=== PATIENT | male | born 1960 | race Caucasian/White ===

== ENCOUNTER → 2017-03-16 | Outpatient (CLI) | payer OTHER ==
--- NOTE | 2017-03-16 13:25 | US ---
EXAMINATION TYPE: US kidneys/renal and bladder DATE OF EXAM: 03/16/2017 7:53 AM COMPARISON: NONE CLINICAL HISTORY: Calculus o Kidney N20.0,Microscopic Hematuria R31.29. EXAM MEASUREMENTS: Right Kidney: 11.2 x 5.0 x 5.6 cm Left Kidney: 11.1 x 5.4 x 7.0cm Right Kidney: 1.1cm inferior pole stone seen Left Kidney: multiple echogenic areas may represent smaller stones under 1cm Bladder: appearance of thickened anterior wall, suspect lack of distention is the etiology. Bilateral Jets seen: yes There is no evidence for hydronephrosis at this point in time. Cortical medullary differentiation is maintained. Bilateral ureteral jets are seen. There is no ascites evident IMPRESSION: Bilateral nephrolithiasis is suspected.
== END | disposition home or self-care (01) ==
LOC: RADUSWWP 07:37
PROVIDERS: ATTEND Family Medicine
DX: R31.29 Other microscopic hematuria (principal)
CPT/HCPCS: 76770

== ENCOUNTER → 2017-04-12 | Outpatient (CLI) | payer OTHER ==
--- NOTE | 2017-04-12 09:09 | US ---
EXAMINATION TYPE: US abdomen complete DATE OF EXAM: 04/12/2017 COMPARISON: CT October 06, 2013 & US kidneys March 16, 2017. CLINICAL HISTORY: R74.3 ELEVATED LIVER ENZYMES,E83.52 ELEVATED CALCIUM,R1084. EXAM MEASUREMENTS: Liver Length: 17.4 cm Gallbladder Wall: 0.3 cm CBD: 0.4 cm Spleen: 12.0 cm Right Kidney: 11.2 x 4.4 x 5.4 cm Left Kidney: 11.2 x 6.8 x 5.9 cm Pancreas: not well visualized Liver: measures upper limits of normal, somewhat coarse echotexture. Gallbladder: No stones seen Evidence for sonographic Levy's sign: No CBD: wnl Spleen: wnl Right Kidney: echogenic focus lower pole, possible stone measuring 0.8 x 0.8 cm shadowing Left Kidney: No hydronephrosis or masses seen Upper IVC: wnl Abd Aorta: known AAA measuring 3.8 x 4.0 cm The visualized liver is heterogeneously hyperechoic. Evaluation for focal masses is suboptimal due to the heterogeneity. The intrahepatic portion of the IVC and proximal abdominal aorta are within saji l limits. Distal abdominal aorta redemonstrated 4.0 cm aneurysmal dilatation. This is more prominent than 2013 CT though likely slightly falsely elevated or measured by technologist, suspect closer to t he 3.7 cm. There is no evidence of cholelithiasis. Common bile duct is unremarkable. The visualized portions of the pancreas are homogenous. The spleen is unremarkable. Kidneys are symmetric and сергей e of hydronephrosis. No renal lesions are seen. IMPRESSION: 1. Heterogeneity of liver is likely on basis of diffuse fatty infiltration, underlying hepatocellular disease felt less likely but not excluded. 2. Suspect stable nonobstructing 8 millimeter right-sided renal calculus from recent ultrasound. 3. Infrarenal abdominal aortic aneurysm appears more prominent than 2012 CT likely measuring up to 3. 7 cm in diameter.
== END | disposition home or self-care (01) ==
LOC: RADUSWWP 06:50
PROVIDERS: ATTEND Family Medicine
DX: K76.0 Fatty (change of) liver, not elsewhere classified (principal); I71.4 Abdominal aortic aneurysm, without rupture
CPT/HCPCS: 76700

== ENCOUNTER 2017-10-28 08:50 | Day surgery (SDC) | payer OTHER ==
[2017-10-27 23:28] VITALS: BMI 30.1
[~2017-10-28 08:50] MED LIST: LACTATED RINGERS 1,000 ML IV SCH
[2017-10-28] MEDS ORDERED: LIDOCAINE 1% 20 ML VIAL (10MG/ML) FOR IV START INTRADERMA ONE (09:05)
[2017-10-28] MEDS ORDERED: PROPOFOL 10 MG/ML 20 ML VIAL IV ONE (09:33)
[2017-10-28] MEDS ORDERED: LIDOCAINE 1% INJ 10MG/ML (20 ML MDV) ONE (09:33)
[2017-10-28] MEDS ORDERED: IV FLUID CONTINUATION 650 ML IV ONE (09:58)
--- NOTE | 2017-10-28 10:06 | P.PCN ---
Date of Procedure: 10/28/17 Preoperative Diagnosis: Rectal pain Postoperative Diagnosis: Rectal polyp Procedure(s) Performed: Colonoscopy with hot forceps biopsy of rectal polyp Anesthesia: MAC Surgeon: Jacob Harmon Condition: stable Disposition: PACU Indications for Procedure: This 57-year-old male who presented to my office with the chief complaint of rectal pain he had never had a colonoscopy in the last 20 years he states he occasionally had some bleeding no other complaints. Operative Findings: Hyperplastic rectal polyps along with a rectal polyp at 1 cm Description of Procedure: Patient brought into the Endo suite placed in the left lateral decubitus position underwent sedation per department of anesthesia. Colonoscope was passed from the rectum to the cecum with ease and slowly withdrawn being sure to visualize the mars of the colon on the way out. There was multiple hyperplastic rectal polyps noted one of these was biopsied with hot forceps biopsies. When the scope was retroflexed to examine the distal rectum, internal hemorrhoids were noted there is also a polyp. Which was biopsied. External hemorrhoids were also noted. Patient had no other abnormalities tolerated the procedure well no apparent complications. Plan - Discharge Summary New Discharge Prescriptions: No Action Lisinopril [Prinivil] 5 mg PO QAM HYDROcodone/APAP 10-325MG [[place] 10-325] 1 tab PO BID Famotidine [Pepcid] 20 mg PO BID Cyanocobalamin (Vitamin B-12) [Vitamin B-12] 2,000 mcg PO DAILY Discharge Medication List Lisinopril [Prinivil] 5 mg PO QAM 10/02/16 [History] Cyanocobalamin (Vitamin B-12) [Vitamin B-12] 2,000 mcg PO DAILY 10/27/17 [ History] Famotidine [Pepcid] 20 mg PO BID 10/27/17 [History] HYDROcodone/APAP 10-325MG [[place] 10-325] 1 tab PO BID 10/27/17 [History]
[2017-10-28 16:31] VITALS: BP 182/80; PULSE 77; RESP 18; TEMP 97.8
== END 2017-10-28 10:30 | disposition home or self-care (01) ==
LOC: ORWHC2ENDO 08:50
PROVIDERS: ATTEND Student in an Organized Health Care Education/Training Program
DX: K62.1 Rectal polyp (principal); K64.4 Residual hemorrhoidal skin tags; K64.8 Other hemorrhoids; I10 Essential (primary) hypertension; G35 Multiple sclerosis; Z79.891 Long term (current) use of opiate analgesic; Z79.899 Other long term (current) drug therapy
CPT/HCPCS: 45384; 88305; J2001; J2704

== ENCOUNTER 2018-01-11 05:34 | Emergency (ER) | payer OTHER ==
[2018-01-11 05:40] VITALS: RESP 18
[2018-01-11] MEDS ORDERED: SODIUM CHLORIDE 0.9% 1,000 ML IV ONE (05:50)
[2018-01-11] MEDS ORDERED: MORPHINE SULFATE/PF 10MG/10ML VL IVP STA (05:50)
[2018-01-11] MEDS ORDERED: KETOROLAC 30 MG/ML 1 ML VIAL IVP STA (05:50)
--- NOTE | 2018-01-11 05:58 | ED ---
General Adult HPI - General Source: patient, RN notes reviewed Mode of arrival: ambulatory Limitations: no limitations <Jerald Florian - Last Filed: 01/11/18 06:57> <Raman Merino - Last Filed: 01/11/18 09:05> - General Chief complaint: Abdominal Pain Stated complaint: kidney pain Time Seen by Provider: 01/11/18 05:43 - History of Present Illness Initial comments: 57-year-old male presents with right flank pain. Patient's pain began approximately 2 hours prior to arrival. The patient from sleep. Patient does have history of kidney stones, states he most recently passed stone about 2 weeks ago. Pain is isolated to the right flank, no abdominal pain or groin pain. Pain is sharp in nature and has been constant. Patient took a [place] at home with minimal relief. Denies any fever or chills. Denies dysuria or hematuria. (Jerald Florian) - Related Data Home Medications Medication Instructions Recorded Confirmed Lisinopril [Prinivil] 5 mg PO QAM 10/02/16 01/11/18 Famotidine [Pepcid] 20 mg PO BID 10/27/17 01/11/18 HYDROcodone/APAP 10-325MG [[place] 1 tab PO BID 10/27/17 01/11/18 10-325] Cholecalciferol [Vitamin D3] 1,000 unit PO DAILY 01/11/18 01/11/18 Previous Rx's Medication Instructions Recorded Hydrocodone/Acetaminophen [[place] 1 each PO Q4HR PRN #20 tab 01/11/18 5-325] Ketorolac [Toradol] 10 mg PO Q6HR #15 tab 01/11/18 Tamsulosin [Flomax] 0.4 mg PO DAILY #10 cap 01/11/18 Allergies Allergy/AdvReac Type Severity Reaction Status Date / Time No Known Allergies Allergy Verified 01/11/18 08:01 Review of Systems ROS Other: All systems not noted in ROS Statement are negative. <Jerald Florian - Last Filed: 01/11/18 06:57> ROS Other: All systems not noted in ROS Statement are negative. <Raman Merino - Last Filed: 01/11/18 09:05> ROS Statement: Those systems with pertinent positive or pertinent negative responses have been documented in the HPI. Past Medical History Past Medical History: Hypertension Additional Past Medical History / Comment(s): Back pain, kidney stone, ulcer History of Any Multi-Drug Resistant Organisms: None Reported Past Surgical History: Appendectomy, Hernia Repair Additional Past Surgical History / Comment(s): transurethral removal of kidney stone,[facility] eye surgery Past Anesthesia/Blood Transfusion Reactions: No Reported Reaction Additional Past Anesthesia/Blood Transfusion Reaction / Comment(s): anesthesia at [facility] caused agitation Past Psychological History: No Psychological Hx Reported Smoking Status: Former smoker - Past Family History Mother Family Medical History: Cancer Father Family Medical History: Cancer <Jerald Florian - Last Filed: 01/11/18 06:57> General Exam Limitations: no limitations General appearance: alert, in no apparent distress Head exam: Present: atraumatic, normocephalic Eye exam: Present: normal appearance. Absent: PERRL, EOMI Neck exam: Present: normal inspection. Absent: tenderness, meningismus Respiratory exam: Present: normal lung sounds bilaterally. Absent: respiratory distress, wheezes Cardiovascular Exam: Present: regular rate, normal rhythm GI/Abdominal exam: Present: soft. Absent: distended, tenderness, guarding Extremities exam: Present: normal inspection, normal capillary refill. Absent: pedal edema Back exam: Present: normal inspection, full ROM, CVA tenderness (R) Neurological exam: Present: alert, oriented X3, CN II-XII intact. Absent: motor sensory deficit Psychiatric exam: Present: normal affect, normal mood Skin exam: Present: warm, dry, intact. Absent: cyanosis, diaphoretic <Jerald Florian - Last Filed: 01/11/18 06:57> Course <Jerald Florian - Last Filed: 01/11/18 06:57> <Raman Merino - Last Filed: 01/11/18 09:05> Vital Signs 01/11/18 01/11/18 01/11/18 05:37 06:10 07:11 Temperature 97.3 F L 97.3 F L Pulse Rate 67 64 67 Respiratory 18 18 18 Rate Blood Pressure 186/90 150/72 162/79 O2 Sat by Pulse 100 97 97 Oximetry - Reevaluation(s) Reevaluation #1: 01/11/18 06:57 Case signed out to Dr. Merino at shift change awaiting imaging and laboratory studies. (Jerald Florian) Medical Decision Making - Lab Data Result diagrams: 01/11/18 06:04 01/11/18 06:04 <Jerald Florian - Last Filed: 01/11/18 06:57> - Lab Data Result diagrams: 01/11/18 06:04 01/11/18 06:04 <Raman Merino - Last Filed: 01/11/18 09:05> - Medical Decision Making Computed tomography scan shows a 9 mm proximal ureteral stone with moderate to severe hydronephrosis. I went back and are examined the patient he was feeling much better and was sleeping when I arrive. Patient states in the past she's passed a 9 mm stone. Patient states he is comfortable to go home at this time he will call urology today. (Raman Merino) - Lab Data Lab Results 01/11/18 01/11/18 01/11/18 Range/Units 06:04 06:04 06:04 WBC 8.9 (3.8-10.6) k/uL RBC 4.55 (4.30-5.90) m/uL Hgb 15.2 (13.0-17.5) gm/dL Hct 43.2 (39.0-53.0) % MCV 94.8 (80.0-100.0) fL MCH 33.3 (25.0-35.0) pg MCHC 35.1 (31.0-37.0) g/dL RDW 12.6 (11.5-15.5) % Plt Count 185 (150-450) k/uL Neutrophils % 75 % Lymphocytes % 16 % Monocytes % 6 % Eosinophils % 1 % Basophils % 0 % Neutrophils # 6.7 (1.3-7.7) k/uL Lymphocytes # 1.4 (1.0-4.8) k/uL Monocytes # 0.5 (0-1.0) k/uL Eosinophils # 0.1 (0-0.7) k/uL Basophils # 0.0 (0-0.2) k/uL PT (9.0-12.0) sec INR (<1.2) APTT (22.0-30.0) sec Sodium 139 (137-145) mmol/L Potassium 4.3 (3.5-5.1) mmol/L Chloride 103 (98-107) mmol/L Carbon Dioxide 27 (22-30) mmol/L Anion Gap 9 mmol/L BUN 14 (9-20) mg/dL Creatinine 0.90 (0.66-1.25) mg/dL Est GFR (CKD-EPI)AfAm >90 (>60 ml/min/1.73 sqM) Est GFR (CKD-EPI)NonAf >90 (>60 ml/min/1.73 sqM) Glucose 129 H (74-99) mg/dL Plasma Lactic Acid Olu 1.1 (0.7-2.0) mmol/L Calcium 9.7 (8.4-10.2) mg/dL Total Bilirubin 0.5 (0.2-1.3) mg/dL AST 75 H (17-59) U/L ALT 94 H (21-72) U/L Alkaline Phosphatase 101 (38-126) U/L Total Protein 7.8 (6.3-8.2) g/dL Albumin 4.3 (3.5-5.0) g/dL Urine Color Urine Appearance (Clear) Urine pH (5.0-8.0) Ur Specific [place] (1.001-1.035) Urine Protein (Negative) Urine Glucose (UA) (Negative) Urine Ketones (Negative) Urine Blood (Negative) Urine Nitrite (Negative) Urine Bilirubin (Negative) Urine Urobilinogen (<2.0) mg/dL Ur Leukocyte Esterase (Negative) Urine RBC (0-5) /hpf Urine WBC (0-5) /hpf Ur Squamous Epith Cells (0-4) /hpf Calcium Oxalate Crystal (None) /hpf Urine Mucus (None) /hpf 01/11/18 01/11/18 Range/Units 06:04 07:53 WBC (3.8-10.6) k/uL RBC (4.30-5.90) m/uL Hgb (13.0-17.5) gm/dL Hct (39.0-53.0) % MCV (80.0-100.0) fL MCH (25.0-35.0) pg MCHC (31.0-37.0) g/dL RDW (11.5-15.5) % Plt Count (150-450) k/uL Neutrophils % % Lymphocytes % % Monocytes % % Eosinophils % % Basophils % % Neutrophils # (1.3-7.7) k/uL Lymphocytes # (1.0-4.8) k/uL Monocytes # (0-1.0) k/uL Eosinophils # (0-0.7) k/uL Basophils # (0-0.2) k/uL PT 10.5 (9.0-12.0) sec INR 1.1 (<1.2) APTT 23.5 (22.0-30.0) sec Sodium (137-145) mmol/L Potassium (3.5-5.1) mmol/L Chloride (98-107) mmol/L Carbon Dioxide (22-30) mmol/L Anion Gap mmol/L BUN (9-20) mg/dL Creatinine (0.66-1.25) mg/dL Est GFR (CKD-EPI)AfAm (>60 ml/min/1.73 sqM) Est GFR (CKD-EPI)NonAf (>60 ml/min/1.73 sqM) Glucose (74-99) mg/dL Plasma Lactic Acid Olu (0.7-2.0) mmol/L Calcium (8.4-10.2) mg/dL Total Bilirubin (0.2-1.3) mg/dL AST (17-59) U/L ALT (21-72) U/L Alkaline Phosphatase (38-126) U/L Total Protein (6.3-8.2) g/dL Albumin (3.5-5.0) g/dL Urine Color Light Red Urine Appearance Cloudy (Clear) Urine pH 6.0 (5.0-8.0) Ur Specific [place] 1.023 (1.001-1.035) Urine Protein 2+ H (Negative) Urine Glucose (UA) Negative (Negative) Urine Ketones Negative (Negative) Urine Blood Large H (Negative) Urine Nitrite Negative (Negative) Urine Bilirubin Negative (Negative) Urine Urobilinogen 2.0 (<2.0) mg/dL Ur Leukocyte Esterase Negative (Negative) Urine RBC >182 H (0-5) /hpf Urine WBC 5 (0-5) /hpf Ur Squamous Epith Cells <1 (0-4) /hpf Calcium Oxalate Crystal Moderate H (None) /hpf Urine Mucus Occasional H (None) /hpf Disposition <IronpetrJerald - Last Filed: 01/11/18 06:57> Time of Disposition: 08:29 <Raman Merino - Last Filed: 01/11/18 09:05> Clinical Impression: Ureterolithiasis Disposition: HOME SELF-CARE Condition: Good Prescriptions: Hydrocodone/Acetaminophen [[place] 5-325] 1 each PO Q4HR PRN #20 tab PRN Reason: Pain Ketorolac [Toradol] 10 mg PO Q6HR #15 tab Tamsulosin [Flomax] 0.4 mg PO DAILY #10 cap Referrals: Maximus Rios DO [Primary Care Provider] - 1-2 days
[2018-01-11 06:15] LABS: Basophils % (A) 0 %; Eosinophils # (A) 0.1 k/uL (0-0.7); Eosinophils % (A) 1 %; HCT 43.2 % (39.0-53.0); HGB 15.2 gm/dL (13.0-17.5); Lymphocytes # (A) 1.4 k/uL (1.0-4.8); Lymphocytes % (A) 16 %; MCH 33.3 pg (25.0-35.0); MCHC 35.1 g/dL (31.0-37.0); MCV 94.8 fL (80.0-100.0); Mean Platelet Volume 7.5; Monocytes # (A) 0.5 k/uL (0-1.0); Monocytes % (A) 6 %; Neutrophils # (A) 6.7 k/uL (1.3-7.7); Neutrophils % (A) 75 %; Platelet Count 185 k/uL (150-450); RBC 4.55 m/uL (4.30-5.90); RDW 12.6 % (11.5-15.5); WBC 8.9 k/uL (3.8-10.6)
[2018-01-11] MEDS ORDERED: ONDANSETRON 4 MG/2 ML VIAL IVP STA (06:15)
[2018-01-11 06:24] LABS: ALT 94 U/L (21-72); AST 75 U/L (17-59); Albumin 4.3 g/dL (3.5-5.0); Alkaline Phosphatase 101 U/L (38-126); Anion Gap 9 mmol/L; Blood Urea Nitrogen 14 mg/dL (9-20); Calcium 9.7 mg/dL (8.4-10.2); Carbon Dioxide 27 mmol/L (22-30); Chloride 103 mmol/L (98-107); Glucose 129 mg/dL (74-99); Potassium 4.3 mmol/L (3.5-5.1); Sodium 139 mmol/L (137-145); Total Bilirubin 0.5 mg/dL (0.2-1.3); Total Protein 7.8 g/dL (6.3-8.2)
[2018-01-11 06:25] LABS: INR 1.1 (<1.2); Partial Thromboplastin Time 23.5 sec (22.0-30.0); Prothrombin Time 10.5 sec (9.0-12.0)
--- NOTE | 2018-01-11 06:48 | CT ---
EXAMINATION TYPE: CT abdomen pelvis wo con DATE OF EXAM: 01/11/2018 HISTORY: Rt flank pain, history of stones. CT DLP: 1044 mGycm. Automated Exposure Control for Dose Reduction was Utilized. TECHNIQUE: CT scan of the abdomen and pelvis is performed without oral or IV contrast. COMPARISON: CT abdomen and pelvis October 06, 2013. FINDINGS: Within the limitations of a non-contrast study, the following observations are made. LUNG BASES: There is stable 3 mm scarlike opacity posterior right lung base on axial image 1 presumed postinflammatory. Heart size is upper limits of normal. LIVER/GB: No significant abnormality is appreciated. PANCREAS: No significant abnormality is seen. SPLEEN: Spleen is enlarged at 14.3 cm long axis axial image 21, not significantly changed from prior. A few small splenules in splenic hilum are redemonstrated. ADRENALS: Low dense nodular thickening to both adrenal glands favors benign hyperplasia, not signific antly changed from prior. KIDNEYS: 3-4 central calcifications in left kidney could reflect nonobstructing renal calculi versus vascular calcifications. There is 9 mm obstructing calculus proximal to mid right ureter seen best coronal image 54 this is ca using moderate to severe right-sided pyelocaliectasis and proximal hydroureter. There is moderate per inephric fat stranding presumed related to obstructing stone, infection should be excluded clinically . There are small dependent calculi in the renal pelvis estimated 5-7 in number measuring up to 4 mm in size. Bladder wall is abnormally thickened up to 7 mm. There is 4 mm dependent hyperdense focus not as dens e as calcium axial image 82, consider acute blood clot. Other etiologies not excluded. BOWEL: Low-lying cecum is seen. No suspicious bowel dilatation is present. GENITAL ORGANS: Some central zone calcifications are seen in normal size prostate gland. LYMPH NODES: No greater than 1cm abdominal or pelvic lymph nodes are appreciated. OSSEOUS STRUCTURES: No significant abnormality is seen. OTHER: There is infrarenal abdominal aortic aneurysm measuring 3.4 x 3.8 cm transversely axial image 44, slightly enlarged from prior CT where it measured 3.6 cm transversely. There is moderate to sever e calcified plaque in the distal abdominal aorta extending into common iliac arterial branch vessels. IMPRESSION: There is obstructing 9 mm calculus proximal to mid right ureter causing moderate to sever e right-sided hydronephrosis.
--- NOTE | 2018-01-11 06:50 | XR ---
EXAMINATION TYPE: XR KUB DATE OF EXAM: 01/11/2018 6:43 AM CLINICAL HISTORY: History of kidney stones with right-sided flank pain TECHNIQUE: Two Upright KUB images of the abdomen are obtained. COMPARISON: CT abdomen and pelvis October 06, 2013. Abdominal x-ray November 22, 2013. FINDINGS: A 9 mm round density is suspicious for ureter calculus L4-L5 disc space level. No definitiv e additional nephrolithiasis. Overall nonobstructive bowel gas pattern lung bases are clear. No pneumoperitoneum is seen. Spleen re khadra prominent. IMPRESSION: Suspect a 9 mm proximal to mid right ureter calculus.
[2018-01-11 08:14] LABS: Appearance,Urine Cloudy (Clear); Bilirubin,Urine Negative (Negative); Blood,Urine Large (Negative); Calcium Oxalate Crystals,Urine Moderate /hpf; Color,Urine Light Red; Glucose,Urine (UA) Negative (Negative); Ketones,Urine Negative (Negative); Leukocyte Esterase,Urine Negative (Negative); Mucus,Urine Occasional /hpf; Nitrite,Urine Negative (Negative); Protein,Urine 2+ (Negative); RBC,Urine >182 /hpf (0-5); Specific Gravity,Urine 1.023 (1.001-1.035); Squamous Epithelial Cell,Urine <1 /hpf (0-4); WBC,Urine 5 /hpf (0-5)
[2018-01-11 09:31] VITALS: BP 131/65; PULSE 72; TEMP 97.9
== END 2018-01-11 09:29 | disposition home or self-care (01) ==
LOC: EC 05:34
DX: N13.2 Hydronephrosis with renal and ureteral calculous obstruction (principal); I10 Essential (primary) hypertension; Z90.49 Acquired absence of other specified parts of digestive tract; Z87.891 Personal history of nicotine dependence; Z79.891 Long term (current) use of opiate analgesic; Z79.899 Other long term (current) drug therapy
CPT/HCPCS: 36415; 80053; 83605; 85025; 85610; 85730; 81001; 74018; 74176; 99284; 96374; 96375 ×2; 96361 ×2; J2405; J1885; J2270

== ENCOUNTER → 2018-01-18 | Outpatient (CLI) | payer OTHER ==
--- NOTE | 2018-01-18 15:52 | US ---
EXAMINATION TYPE: US kidneys/renal and bladder DATE OF EXAM: 01/18/2018 COMPARISON: CT dated 01/11/2018, US dated 04/12/2017 CLINICAL HISTORY: N20 Calculus of Kidney; right flank pain EXAM MEASUREMENTS: Right Kidney: 12.5 x 6.9 x 7.1 cm Left Kidney: 12.0 x 5.1 x 5.8 cm Post Void Residual Volume: empty bladder Right Kidney: mild hydronephrosis; central hyperechoic focus may be small calcification vs. vessel wa ll calcification noted with posterior shadowing on image #[id number]. Left Kidney: No hydronephrosis or masses seen Bladder: wnl Bilateral Jets seen: only left ureteral was seen after 3 minute observation Normal Post Void Residual: Yes IMPRESSION: There is persistent right hydronephrosis. No ureteral jet was identified on the right. Findings may r epresent persistent right ureteral obstruction.
== END | disposition home or self-care (01) ==
LOC: RADUSWWP 13:30
PROVIDERS: ATTEND Family Medicine
DX: N13.30 Unspecified hydronephrosis (principal)
CPT/HCPCS: 76770

== ENCOUNTER 2018-04-23 20:10 | Emergency (ER) | payer OTHER ==
[2018-04-23 20:44] VITALS: RESP 18
[2018-04-23] MEDS ORDERED: SODIUM CHLORIDE 0.9% 1,000 ML IV STA (21:13)
[2018-04-23] MEDS ORDERED: ONDANSETRON 4 MG/2 ML VIAL IVP STA (21:13)
[2018-04-23] MEDS ORDERED: MORPHINE SULFATE 2 MG/ML SYRINGE IV STA (21:13)
[2018-04-23] MEDS ORDERED: KETOROLAC 30 MG/ML 1 ML VIAL IVP STA (21:13)
--- NOTE | 2018-04-23 21:18 | ED ---
Abdominal Pain HPI - General Chief Complaint: Abdominal Pain Stated Complaint: Flank pain Time Seen by Provider: 04/23/18 21:04 Source: patient Mode of arrival: ambulatory Limitations: no limitations - History of Present Illness Initial Comments: Patient is a 58-year-old male presenting for abdominal pain and flank pain. Patient states that he has extensive history of renal calculi with last one occurring a couple months ago. He started having abdominal pain that started at noon and is located in the right flank. Physical pressure sensation in his been constant without radiation or modifying factor. He also admits to subjective fevers and chills and 2 episodes of nausea and vomiting. He denies any diarrhea or chest pain/shortness breath. He also states his been able to urinate without complication. - Related Data Home Medications Medication Instructions Recorded Confirmed Lisinopril [Prinivil] 5 mg PO QAM 10/02/16 01/11/18 Famotidine [Pepcid] 20 mg PO BID 10/27/17 01/11/18 HYDROcodone/APAP 10-325MG [[place] 1 tab PO BID 10/27/17 01/11/18 10-325] Cholecalciferol [Vitamin D3] 1,000 unit PO DAILY 01/11/18 01/11/18 Previous Rx's Medication Instructions Recorded Hydrocodone/Acetaminophen [[place] 1 each PO Q4HR PRN #20 tab 01/11/18 5-325] Ketorolac [Toradol] 10 mg PO Q6HR #15 tab 01/11/18 Tamsulosin [Flomax] 0.4 mg PO DAILY #10 cap 01/11/18 Allergies Allergy/AdvReac Type Severity Reaction Status Date / Time No Known Allergies Allergy Verified 04/23/18 20:44 Review of Systems ROS Statement: Those systems with pertinent positive or pertinent negative responses have been documented in the HPI. Constitutional: Positive for chills, fatigue and fever. HENT: Negative for congestion. Respiratory: Negative for chest tightness, shortness of breath and wheezing. Negative for cough Cardiovascular: Negative for chest pain and palpitations. Gastrointestinal: Positive for abdominal pain. Negative for abdominal distention , diarrhea, positive for nausea and vomiting. Genitourinary: Negative for dysuria. Negative for hematuria Musculoskeletal: Negative for back pain, neck pain and neck stiffness. Skin: Negative for color change. Neurological: Negative for dizziness, speech difficulty, weakness and light- headedness. Psychiatric/Behavioral: Negative for agitation and confusion. The patient is not nervous/anxious. ROS Other: All systems not noted in ROS Statement are negative. Past Medical History Past Medical History: Hypertension Additional Past Medical History / Comment(s): Back pain, kidney stone, ulcer History of Any Multi-Drug Resistant Organisms: None Reported Past Surgical History: Appendectomy, Hernia Repair Additional Past Surgical History / Comment(s): transurethral removal of kidney stone,[place] eye surgery Past Anesthesia/Blood Transfusion Reactions: No Reported Reaction Additional Past Anesthesia/Blood Transfusion Reaction / Comment(s): anesthesia at [place] caused agitation Past Psychological History: No Psychological Hx Reported Smoking Status: Former smoker Past Alcohol Use History: None Reported Past Drug Use History: Marijuana - Past Family History Mother Family Medical History: Cancer Father Family Medical History: Cancer General Exam - General Exam Comments Initial Comments: Constitutional: Pt is oriented to person, place, and time. Pt appears well- developed and well-nourished. No distress. HENT: Head: Normocephalic and atraumatic. Eyes: EOM are normal. Neck: Normal range of motion. Neck supple. Cardiovascular: Normal rate, regular rhythm, S1 normal, S2 normal and normal heart sounds. Exam reveals no gallop and no friction rub. No murmur heard. Pulmonary/Chest: Effort normal and breath sounds normal. No tachypnea and no bradypnea. No respiratory distress. No wheezes or rales noted. Abdominal: Soft. Bowel sounds are normal. Pt exhibits no shifting dullness, no distension, no pulsatile liver, no fluid wave, no abdominal bruit and no ascites. There is no tenderness. There is no rigidity, no rebound, no guarding, no tenderness at McBurney's point and negative Levy's sign. Positive for bilateral flank pain Musculoskeletal: Normal range of motion. Neurological: Pt is alert and oriented to person, place, and time. No cranial nerve deficit. Skin: Skin is warm and dry. No rash noted. Pt is not diaphoretic. No erythema. No pallor. Psychiatric: Pt has a normal mood and affect. Pt behavior is normal. Thought content normal. Limitations: no limitations Course Vital Signs 04/23/18 04/23/18 20:43 23:48 Temperature 98.6 F 98.9 F Pulse Rate 73 90 Respiratory 18 18 Rate Blood Pressure 173/89 138/62 O2 Sat by Pulse 97 98 Oximetry - Reevaluation(s) Reevaluation #1: 04/23/18 23:08 Patient advised that there is severe concern about possible septic stone as there is an 11 mm at the right UVJ. There is also evidence of leukocytosis and evidence of urinary tract infection. Patient was advised that he should be admitted to hospital for continued treatment. However, he currently declines and states that he needs to leave for a short period of time prostate 2-3 hours to take care of his ailing at home. He states that he wouldn't come back to the hospital to get admitted. He also states that he would be agreeable to having antibiotics and blood cultures completed before he leaves. Medical Decision Making - Medical Decision Making As noted in the ED course section, there was significant abnormalities found including leukocytosis as well as transaminitis. There is also hyperkalemia 5.8. Patient was urged to remain in the hospital and this is also discussed with urology and they agreed that the patient should stay and started on antibiotics. Nonetheless, the patient currently declined and stated that he had to leave to take care of his ailing and that he would return approximate 4 hours. He was advised that because treatment of the hyperkalemia involved to D50 and insulin as well as calcium gluconate, he cannot be treated and then knowingly leave the hospital. Therefore, he elected to not receive treatment for hyperkalemia. Additionally, he did receive Rocephin as well as blood cultures were obtained prior to him leaving [place]. He was also explained to him that leaving AGAINST MEDICAL ADVICE could result in or disability which she expressed understanding. He again was advised to return to emergency department as soon as possible since he was indeed leaving AGAINST MEDICAL ADVICE. Patient was agreeable - Lab Data Result diagrams: 04/23/18 20:04 04/23/18 21:16 Lab Results 04/23/18 04/23/18 04/23/18 Range/Units 20:04 21:16 21:58 WBC 15.0 H (3.8-10.6) k/uL RBC 4.84 (4.30-5.90) m/uL Hgb 15.8 (13.0-17.5) gm/dL Hct 46.4 (39.0-53.0) % MCV 95.7 (80.0-100.0) fL MCH 32.7 (25.0-35.0) pg MCHC 34.1 (31.0-37.0) g/dL RDW 12.7 (11.5-15.5) % Plt Count 183 (150-450) k/uL Neutrophils % 88 % Lymphocytes % 7 % Monocytes % 4 % Eosinophils % 0 % Basophils % 0 % Neutrophils # 13.2 H (1.3-7.7) k/uL Lymphocytes # 1.1 (1.0-4.8) k/uL Monocytes # 0.6 (0-1.0) k/uL Eosinophils # 0.1 (0-0.7) k/uL Basophils # 0.0 (0-0.2) k/uL Sodium 136 L (137-145) mmol/L Potassium 5.8 H (3.5-5.1) mmol/L Chloride 99 (98-107) mmol/L Carbon Dioxide 24 (22-30) mmol/L Anion Gap 13 mmol/L BUN 11 (9-20) mg/dL Creatinine 1.00 (0.66-1.25) mg/dL Est GFR (CKD-EPI)AfAm >90 (>60 ml/min/1.73 sqM) Est GFR (CKD-EPI)NonAf 82 (>60 ml/min/1.73 sqM) Glucose 143 H (74-99) mg/dL Calcium 9.8 (8.4-10.2) mg/dL Total Bilirubin 1.4 H (0.2-1.3) mg/dL AST 111 H (17-59) U/L ALT 105 H (21-72) U/L Alkaline Phosphatase 101 (38-126) U/L Total Protein 9.3 H (6.3-8.2) g/dL Albumin 5.0 (3.5-5.0) g/dL Lipase 290 (23-300) U/L Urine Color Yellow Urine Appearance Cloudy (Clear) Urine pH 8.0 (5.0-8.0) Ur Specific [place] 1.020 (1.001-1.035) Urine Protein 1+ H (Negative) Urine Glucose (UA) Negative (Negative) Urine Ketones Negative (Negative) Urine Blood Moderate H (Negative) Urine Nitrite Negative (Negative) Urine Bilirubin Negative (Negative) Urine Urobilinogen <2.0 (<2.0) mg/dL Ur Leukocyte Esterase Negative (Negative) Urine RBC 97 H (0-5) /hpf Urine WBC 8 H (0-5) /hpf Ur Squamous Epith Cells 1 (0-4) /hpf Amorphous Sediment Few H (None) /hpf Urine Mucus Rare H (None) /hpf Disposition Clinical Impression: Transaminitis, Sepsis, Kidney stone, Hyperkalemia Disposition: Left Against Medical Advice Condition: Poor Instructions: Kidney Stones (ED) Is patient prescribed a controlled substance at d/c from ED?: No Referrals: Maximus Rios DO [Primary Care Provider] - 1-2 days Time of Disposition: 23:40
[2018-04-23 21:35] LABS: ALT 105 U/L (21-72); AST 111 U/L (17-59); Alkaline Phosphatase 101 U/L (38-126); Anion Gap 13 mmol/L; Blood Urea Nitrogen 11 mg/dL (9-20); Calcium 9.8 mg/dL (8.4-10.2); Carbon Dioxide 24 mmol/L (22-30); Chloride 99 mmol/L (98-107); Glucose 143 mg/dL (74-99); Lipase 290 U/L (23-300); Sodium 136 mmol/L (137-145); Total Bilirubin 1.4 mg/dL (0.2-1.3); Total Protein 9.3 g/dL (6.3-8.2)
[2018-04-23 21:45] LABS: Potassium 5.8 mmol/L (3.5-5.1)
--- NOTE | 2018-04-23 22:11 | CT ---
EXAMINATION TYPE: CT abdomen pelvis wo con DATE OF EXAM: 04/23/2018 COMPARISON: 01/11/2018 HISTORY: Right side flank pain. CT DLP: 788.7 mGycm Automated exposure control for dose reduction was used. TECHNIQUE: Helical acquisition of images was performed from the lung bases through the pelvis. FINDINGS: Lung bases are clear. There is no pleural effusion. Heart size is normal. There is no pericardial eff usion. Liver spleen pancreas appear normal. Gallbladder is dilated and measures 5 x 10 cm. There is no adrenal mass. There is right-sided hydronephrosis and hydroureter. There is right-sided p erinephric stranding. There is some renal vascular calcification. There is no retroperitoneal adenopa thy. There is 4 cm aneurysm of the lower abdominal aorta. There is right-sided hydroureter and 11 mm calculus at the right ureterovesical junction. Bladder distends smoothly. I see no intestinal wall thickening. There are no dilated loops. There is no ascites. There is no danya dence of pelvic mass. The lumbar spine is intact. IMPRESSION: LARGE OBSTRUCTING CALCULUS AT THE RIGHT URETEROVESICAL JUNCTION THAT HAS MIGRATED FROM THE PROXIMAL R IGHT URETER COMPARED TO OLD EXAM. RIGHT-SIDED HYDRONEPHROSIS AND PERINEPHRIC EDEMA. THIS IS UNCHANGED COMPARED TO OLD EXAM. DILATED URINARY BLADDER CONSISTENT WITH GALLBLADDER DYSFUNCTION OR CHOLECYSTIT IS. GALLBLADDER IS INCREASED SLIGHTLY COMPARED TO OLD EXAM. 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 THIS APPEARS NOT SIGNIFICANTLY DIFFERENT.
[2018-04-23 22:13] LABS: Basophils % (A) 0 %; Eosinophils # (A) 0.1 k/uL (0-0.7); Eosinophils % (A) 0 %; HCT 46.4 % (39.0-53.0); HGB 15.8 gm/dL (13.0-17.5); Lymphocytes # (A) 1.1 k/uL (1.0-4.8); Lymphocytes % (A) 7 %; MCH 32.7 pg (25.0-35.0); MCHC 34.1 g/dL (31.0-37.0); MCV 95.7 fL (80.0-100.0); Monocytes # (A) 0.6 k/uL (0-1.0); Monocytes % (A) 4 %; Neutrophils # (A) 13.2 k/uL (1.3-7.7); Neutrophils % (A) 88 %; Platelet Count 183 k/uL (150-450); RBC 4.84 m/uL (4.30-5.90); RDW 12.7 % (11.5-15.5)
[2018-04-23 22:40] LABS: Amorphous Sediment,Urine Few /hpf; Appearance,Urine Cloudy (Clear); Bilirubin,Urine Negative (Negative); Blood,Urine Moderate (Negative); Color,Urine Yellow; Glucose,Urine (UA) Negative (Negative); Ketones,Urine Negative (Negative); Leukocyte Esterase,Urine Negative (Negative); Mucus,Urine Rare /hpf; Nitrite,Urine Negative (Negative); Protein,Urine 1+ (Negative); RBC,Urine 97 /hpf (0-5); Squamous Epithelial Cell,Urine 1 /hpf (0-4); Urobilinogen,Urine <2.0 mg/dL (<2.0); WBC,Urine 8 /hpf (0-5)
[2018-04-23] MEDS ORDERED: cefTRIAXone IN SWFI 1,000 MG/10 ML SYRINGE IVP STA (23:17)
[2018-04-23 23:55] VITALS: BP 138/62; PULSE 90; TEMP 98.9
== END 2018-04-23 23:54 | disposition left against medical advice (07) ==
LOC: EC 20:10
DX: A41.9 Sepsis, unspecified organism (principal); N13.2 Hydronephrosis with renal and ureteral calculous obstruction; E87.5 Hyperkalemia; R74.0 Nonspecific elevation of levels of transaminase and lactic acid dehydrogenase [LDH]; D72.829 Elevated white blood cell count, unspecified; I10 Essential (primary) hypertension; M54.9 Dorsalgia, unspecified; Z53.29 Procedure and treatment not carried out because of patient's decision for other reasons; Z90.49 Acquired absence of other specified parts of digestive tract; Z79.891 Long term (current) use of opiate analgesic; Z79.899 Other long term (current) drug therapy; Z87.891 Personal history of nicotine dependence
CPT/HCPCS: 99284; 96374; 96375 ×3; 96361; 36415; 80053; 83690; 85025; 81001; 74176; J2405; J0696; J1885; J2270

== ENCOUNTER 2018-04-24 03:30 | Emergency (ER) | payer OTHER ==
--- NOTE | 2018-04-24 06:56 | ED ---
Abdominal Pain HPI - General Chief Complaint: Abdominal Pain Stated Complaint: Kidney stone Time Seen by Provider: 04/24/18 04:50 Source: patient Mode of arrival: ambulatory Limitations: no limitations - History of Present Illness Initial Comments: 58 years old male was seen earlier today with abdominal pain and was diagnosed with a kidney stone his white count was 15 his potassium is 5.8 total bili was elevated AST and ALT are elevated urine was positive he was advised admission but he had to go home to care of his noticed he was offered admission with the sepsis and he stops and hyperkalemia. System is unremarkable otherwise - Related Data Home Medications Medication Instructions Recorded Confirmed Lisinopril [Prinivil] 5 mg PO QAM 10/02/16 01/11/18 Famotidine [Pepcid] 20 mg PO BID 10/27/17 01/11/18 HYDROcodone/APAP 10-325MG [[place] 1 tab PO BID 10/27/17 01/11/18 10-325] Cholecalciferol [Vitamin D3] 1,000 unit PO DAILY 01/11/18 01/11/18 Previous Rx's Medication Instructions Recorded Hydrocodone/Acetaminophen [[place] 1 each PO Q4HR PRN #20 tab 01/11/18 5-325] Ketorolac [Toradol] 10 mg PO Q6HR #15 tab 01/11/18 Tamsulosin [Flomax] 0.4 mg PO DAILY #10 cap 01/11/18 Allergies Allergy/AdvReac Type Severity Reaction Status Date / Time No Known Allergies Allergy Verified 04/24/18 03:42 Review of Systems ROS Statement: Those systems with pertinent positive or pertinent negative responses have been documented in the HPI. ROS Other: All systems not noted in ROS Statement are negative. Past Medical History Past Medical History: Hypertension Additional Past Medical History / Comment(s): Back pain, kidney stone, ulcer History of Any Multi-Drug Resistant Organisms: None Reported Past Surgical History: Appendectomy, Hernia Repair Additional Past Surgical History / Comment(s): transurethral removal of kidney stone,[place] eye surgery Past Anesthesia/Blood Transfusion Reactions: No Reported Reaction Additional Past Anesthesia/Blood Transfusion Reaction / Comment(s): anesthesia at [place] caused agitation Past Psychological History: No Psychological Hx Reported Smoking Status: Former smoker Past Alcohol Use History: None Reported Past Drug Use History: Marijuana - Past Family History Mother Family Medical History: Cancer Father Family Medical History: Cancer General Exam - General Exam Comments Initial Comments: General: The patient is awake and alert, in no distress, and does not appear acutely ill. Skin: Skin is warm and dry and no rashes or lesions are noted. Eye: Pupils are equal, round and reactive to light, extra-ocular movements are intact; there is normal conjunctiva bilaterally. Ears, nose, mouth and throat: There are moist mucous membranes and no oral lesions. Neck: The neck is supple, there is no tenderness or JVD. Cardiovascular: There is a regular rate and rhythm. No murmur, rub or gallop is appreciated. Respiratory: To auscultation bilateral, no wheezing no rhonchi no distress respiratory lopez noticed Gastrointestinal: Tender in right upper quadrant area and the right flank area Back: There is no tenderness to palpation in the midline. There is no obvious deformity. Musculoskeletal: Normal ROM, no tenderness, There is no pedal edema. There is no calf tenderness or swelling. No cords were appreciated. Neurological: CN II-XII intact, Cranial nerves III through XII are intact. There are no obvious motor or sensory deficits. Coordination appears grossly intact. Speech is normal. Psychiatric: Cooperative, appropriate mood & affect, normal judgment. Limitations: no limitations Course Vital Signs 04/24/18 04/24/18 03:39 05:19 Temperature 98.1 F Pulse Rate 106 H 71 Respiratory 18 18 Rate Blood Pressure 163/99 141/81 O2 Sat by Pulse 96 96 Oximetry Disposition Clinical Impression: Sepsis, Kidney stone, Hyperkalemia Disposition: ADMITTED IP TO THIS HOSP Condition: Good Referrals: Maximus Rios DO [Primary Care Provider] - 1-2 days
[2018-04-24] MEDS ORDERED: NALOXONE 0.4 MG/ML 1 ML VIAL IV PRN (07:06)
[2018-04-24] MEDS ORDERED: ONDANSETRON 4 MG/2 ML VIAL IVP PRN (07:06)
[2018-04-24] MEDS ORDERED: HYDROmorphone 0.5 MG/0.5 ML SYRINGE IVP PRN (07:06)
[2018-04-24] MEDS ORDERED: MORPHINE SULFATE 2 MG/ML SYRINGE IVP STA (07:10)
[2018-04-24] MEDS ORDERED: SODIUM CHLORIDE 0.9% 1,000 ML IV SCH (07:15)
[2018-04-24] MEDS ORDERED: PANTOPRAZOLE 40 MG TABLET PO ONE (08:00)
--- NOTE | 2018-04-24 11:31 | P.GSCN ---
History of Present Illness Consult date: 04/24/18 History of present illness: The patient is a pleasant 4-year-old gentleman with a history of kidney stones. He apparently a couple months ago was identified to have a right ureteral stone. He was trying to pass this but apparently had not. He came to the emergency room yesterday with severe ureteral colic. A computed tomography scan identified an 11 mm right distal ureteral stone With hydroureteronephrosis He was admitted for IV hydration problem narcotics. I was asked to see the patient. There is a question of urinary sepsis however he has not had any fever. His urine test showed 96 red cells and 8 white cells. He is feeling well this morning. The computed tomography scan is reviewed by me identifying the millimeter distal ureteral stone right. He still has some irritative urinary symptoms. Review of Systems - Gastrointestinal Reports abdominal pain - Genitourinary Reports as per HPI - Musculoskeletal Reports low back pain Past Medical History Past Medical History: Hypertension Additional Past Medical History / Comment(s): Back pain, kidney stone, ulcer History of Any Multi-Drug Resistant Organisms: None Reported Past Surgical History: Appendectomy, Hernia Repair Additional Past Surgical History / Comment(s): transurethral removal of kidney stone,[place] eye surgery Past Anesthesia/Blood Transfusion Reactions: No Reported Reaction Additional Past Anesthesia/Blood Transfusion Reaction / Comm: anesthesia at [place] caused agitation Past Psychological History: No Psychological Hx Reported Smoking Status: Former smoker Past Alcohol Use History: None Reported Past Drug Use History: Marijuana - Past Family History Mother Family Medical History: Cancer Father Family Medical History: Cancer Medications and Allergies Home Medications Medication Instructions Recorded Confirmed Type Lisinopril [Prinivil] 5 mg PO QAM 10/02/16 01/11/18 History Famotidine [Pepcid] 20 mg PO BID 10/27/17 01/11/18 History HYDROcodone/APAP 10-325MG [[place] 1 tab PO BID 10/27/17 01/11/18 History 10-325] Cholecalciferol [Vitamin D3] 1,000 unit PO DAILY 01/11/18 01/11/18 History Hydrocodone/Acetaminophen [[place] 1 each PO Q4HR PRN #20 tab 01/11/18 Rx 5-325] Ketorolac [Toradol] 10 mg PO Q6HR #15 tab 01/11/18 Rx Tamsulosin [Flomax] 0.4 mg PO DAILY #10 cap 01/11/18 Rx Allergies Allergy/AdvReac Type Severity Reaction Status Date / Time No Known Allergies Allergy Verified 04/24/18 03:42 Surgical - Exam Vital Signs Temp Pulse Resp BP Pulse Ox 98.1 F 106 H 18 163/99 96 04/24/18 03:39 04/24/18 03:39 04/24/18 03:39 04/24/18 03:39 04/24/18 03:39 - General well developed, well nourished, no distress - ENT no hearing loss - Neck trachea midline - Respiratory normal expansion, normal respiratory effort - Cardiovascular Rhythm: regular - Abdomen Abdomen: soft, non tender - Genitourinary normal penis with no external lesions, testicles present - Integumentary no rash - Neurologic normal sensation - Musculoskeletal normal posture - Psychiatric oriented to time, oriented to person, oriented to place, speech is normal, memory intact Results - Imaging CT scan - abdomen: report reviewed, image reviewed CT scan - pelvis: report reviewed, image reviewed Assessment and Plan Assessment: Impression: Large distal right ureteral stone. There are hydronephrosis. History of back problems. History of hypertension. Recommendations: I do not think this patient is septic. He is been trying to pass the stone for 2 months and due to the size is been unable to do so. I think he needs something to treat the stone to get rid of it. The options of her Sacha versus shockwave lithotripsy have been discussed. In the location and size statistically ureteroscopy is a much better but. He is feeling better this morning and wants to go home. I will discharge home home. I will give him some antibiotics just in case but I do not truly think his urine is infected. I will see Him tomorrow for ureteroscopy for a stone manipulation at the [facility].
[2018-04-24 13:49] LABS: Calcium 9.1 mg/dL (8.4-10.2); Potassium 4.5 mmol/L (3.5-5.1)
[2018-04-24 14:25] VITALS: BP 149/82; PULSE 74; RESP 18; TEMP 97.6
--- NOTE | 2018-04-24 14:36 | P.DS ---
Providers Consults: 04/24/18 07:06 Consult Physician Stat Consulting Provider: Kunal De Los Santos Consult Reason/Comments: calculus in ureter Do you want consulting provider notified?: Yes Primary care physician: Maximus Rios [facility] Course: Please refer to my HPI Patient Condition at Discharge: Good Plan - Discharge Summary New Discharge Prescriptions: New Ciprofloxacin HCl [Cipro] 500 mg PO Q12HR #10 tablet No Action Lisinopril [Prinivil] 2.5 mg PO QAM Famotidine [Pepcid] 20 mg PO BID Cholecalciferol [Vitamin D3] 1,000 unit PO DAILY Hydrocortisone [Anusol-Hc] 1 applic RECTAL DAILY PRN PRN Reason: RECTAL PAIN Discharge Medication List Lisinopril [Prinivil] 2.5 mg PO QAM 10/02/16 [History] Famotidine [Pepcid] 20 mg PO BID 10/27/17 [History] Cholecalciferol [Vitamin D3] 1,000 unit PO DAILY 01/11/18 [History] Ciprofloxacin HCl [Cipro] 500 mg PO Q12HR #10 tablet 04/24/18 [Rx] Hydrocortisone [Anusol-Hc] 1 applic RECTAL DAILY PRN 04/24/18 [History] Follow up Appointment(s)/Referral(s): Maximus Rios DO [Primary Care Provider] - 1-2 days Patient Instructions/Handouts: Kidney Stones (ED) Activity/Diet/Wound Care/Special Instructions: keep f/u appt with urology tomorrow as already scheduled. Discharge Disposition: HOME SELF-CARE
--- NOTE | 2018-04-24 14:36 | P.HPIM ---
History of Present Illness 4-year-old gentleman came in with complaints of right ureteric colic with pain starting in the right flank area radiating to the front and found to have little milk 11 mm stone. Patient was a valid by surgery-urology and cleared for discharge to follow up as an outpatient for the outpatient lithotripsy. Patient denied any dysuria nausea vomiting patient doesn't have any fever or leukocytosis patient does have some white blood cells in the urine patient does not appear to have UTI. Urology is according antibiotics that she had the give prescription for Bactrim. I did review his previous ER visit as well patient had elevated potassium although there is hemolysis is still have concern about potassium elevation because of which I'll repeat potassium patient is also taking lisinopril because of elevated potassium concerns and because of him being on lisinopril also switch Bactrim to ciprofloxacin and patient will follow with urology as an outpatient patient pain completely resolved at this point of time. I did get the repeat potassium now which is 4.5. Review of Systems REVIEW OF SYSTEMS: CONSTITUTIONAL: No fever, no malaise, no fatigue. HEENT: No recent visual problems or hearing problems. Denied any sore throat. CARDIOVASCULAR: No chest pain, orthopnea, PND, no palpitations, no syncope. PULMONARY: No shortness of breath, no cough, no hemoptysis. GASTROINTESTINAL: No diarrhea, no nausea, no vomiting, Normoactive bowel sounds. NEUROLOGICAL: No headaches, no weakness, no numbness. HEMATOLOGICAL: Denies any bleeding or petechiae. GENITOURINARY: Denies any burning micturition, frequency, or urgency. MUSCULOSKELETAL/RHEUMATOLOGICAL: Denies any joint pain, swelling, or any muscle pain. ENDOCRINE: Denies any polyuria or polydipsia. The rest of the 14-point review of systems is negative. Past Medical History Past Medical History: Hypertension Additional Past Medical History / Comment(s): Back pain, kidney stone, ulcer History of Any Multi-Drug Resistant Organisms: None Reported Past Surgical History: Appendectomy, Hernia Repair Additional Past Surgical History / Comment(s): transurethral removal of kidney stone,[facility] Past Anesthesia/Blood Transfusion Reactions: No Reported Reaction Additional Past Anesthesia/Blood Transfusion Reaction / Comment(s): anesthesia at [facility] caused agitation Past Psychological History: No Psychological Hx Reported Smoking Status: Former smoker Past Alcohol Use History: None Reported Past Drug Use History: Marijuana - Past Family History Mother Family Medical History: Cancer Father Family Medical History: Cancer Medications and Allergies Home Medications Medication Instructions Recorded Confirmed Type Lisinopril [Prinivil] 2.5 mg PO QAM 10/02/16 04/24/18 History Famotidine [Pepcid] 20 mg PO BID 10/27/17 04/24/18 History Cholecalciferol [Vitamin D3] 1,000 unit PO DAILY 01/11/18 04/24/18 History Ciprofloxacin HCl [Cipro] 500 mg PO Q12HR #10 tablet 04/24/18 Rx Hydrocortisone [Anusol-Hc] 1 applic RECTAL DAILY PRN 04/24/18 04/24/18 History Allergies Allergy/AdvReac Type Severity Reaction Status Date / Time No Known Allergies Allergy Verified 04/24/18 12:50 Physical Exam Vitals: Vital Signs Temp Pulse Resp BP Pulse Ox 04/24/18 14:23 97.6 F 74 18 149/82 95 04/24/18 10:28 98.2 F 78 20 135/66 96 04/24/18 07:22 78 18 135/69 97 04/24/18 05:19 71 18 141/81 96 04/24/18 03:39 98.1 F 106 H 18 163/99 96 Intake and Output 04/23/18 04/24/18 04/24/18 22:59 06:59 14:59 Other: Weight 96.615 kg PHYSICAL EXAMINATION: GENERAL: The patient is alert and oriented x3, not in any acute distress. Obese HEENT: Pupils are round and equally reacting to light. EOMI. No scleral icterus. No conjunctival pallor. Normocephalic, atraumatic. No pharyngeal erythema. No thyromegaly. CARDIOVASCULAR: S1 and S2 present. No murmurs, rubs, or gallops. PULMONARY: Chest is clear to auscultation, no wheezing or crackles. ABDOMEN: Soft, nontender, nondistended, normoactive bowel sounds. No palpable organomegaly. MUSCULOSKELETAL: No joint swelling or deformity. EXTREMITIES: No cyanosis, clubbing, or pedal edema. NEUROLOGICAL: Gross neurological examination did not reveal any focal deficits. SKIN: No rashes. Results CBC & Chem 7: 04/24/18 13:00 Labs: Abnormal Lab Results - Last 24 Hours (Table) 04/24/18 Range/Units 13:00 Glucose 119 H (74-99) mg/dL Assessment and Plan Plan: -Right-sided nephrolithiasis may have passed a stone, patient will follow with urology as an outpatient tomorrow, low possibility of urinary tract infection cannot be ruled out because of which patient really being discharged on Cipro -Hyperkalemia: Secondary to hemolysis -Hypertension - gastroesophageal reflux disease Patient will be discharged today to follow with urology as an outpatient.
[2018-04-25] MEDS ORDERED: PANTOPRAZOLE 40 MG TABLET PO SCH (07:30)
== END 2018-04-24 14:25 | disposition other institution (70) ==
LOC: EC 03:30 → UNDOADMIN 07:08 → 5MS5E 07:08 → EC 14:25
DX: A41.9 Sepsis, unspecified organism (principal); N20.0 Calculus of kidney; E87.5 Hyperkalemia; I10 Essential (primary) hypertension; Z87.891 Personal history of nicotine dependence; Z79.891 Long term (current) use of opiate analgesic; Z79.899 Other long term (current) drug therapy; Z87.19 Personal history of other diseases of the digestive system; Z87.39 Personal history of other diseases of the musculoskeletal system and connective tissue; Z90.49 Acquired absence of other specified parts of digestive tract; Z98.890 Other specified postprocedural states
CPT/HCPCS: 36415; 80048; 99285; 96374; 96375 ×2; 96361 ×7; J2405; J2270; J1170

== ENCOUNTER → 2019-02-20 | Outpatient (CLI) | payer OTHER ==
--- NOTE | 2019-02-20 10:26 | US ---
EXAMINATION TYPE: US liver DATE OF EXAM: 02/20/2019 COMPARISON: None CLINICAL HISTORY: 59-year-old male R74.0 Nonspecific elevation of levels of transaminase. Abnormal la bs. No surgeries. Hx of renal stones. TECHNIQUE: Multiple sonographic images of the right upper quadrant are obtained. FINDINGS: EXAM MEASUREMENTS: Liver Length: 17.8 cm Gallbladder Wall: 0.2 cm CBD: 0.5 cm CHD: 0.4 cm Right Kidney: 9.6 x 5.2 x 5.3 cm Pancreas: Obscured by bowel gas Liver: Increased attenuation, decreased visualization of vessels suggestive of fatty infiltrate. Co arse. Gallbladder: No stones seen or sludge. However, the gallbladder is mildly distended. Evidence for sonographic Levy's sign: neg CBD: wnl Right Kidney: No hydronephrosis. There is a tiny lower pole cortical cyst measuring 7 mm. IMPRESSION: 1. Borderline hepatomegaly (17.8 cm) with moderate to severe hepatic steatosis. Correlate with elevat ion, profile, and patient risk factors. 2. Mildly hydropic gallbladder may relate to fasting state. No cholelithiasis is seen. If further carmen ging evaluation of the gallbladder is desired, HIDA scan with ejection fraction can be considered.
== END ==
LOC: RADUSWWP 09:02
PROVIDERS: ATTEND Family Medicine
DX: K76.0 Fatty (change of) liver, not elsewhere classified (principal); R16.0 Hepatomegaly, not elsewhere classified; R93.2 Abnormal findings on diagnostic imaging of liver and biliary tract
CPT/HCPCS: 76705

== ENCOUNTER → 2019-11-20 | Outpatient (CLI) | payer OTHER ==
--- NOTE | 2019-11-20 11:43 | NM ---
EXAMINATION TYPE: NM hepatobiliary w EF DATE OF EXAM: 11/20/2019 COMPARISON: NONE HISTORY: Gastroesophageal reflux. Abdominal pain. Esophagitis. TECHNIQUE: After the intravenous administration of 4.3 mCi Tc 99m Mebrofenin hepatobiliary scintigrap hy is performed. Immediate images post injection. FINDINGS: There is satisfactory initial accumulation of tracer by the liver. The gallbladder is visualized wit hin 18 minutes. The small bowel activity is noted within 34 minutes. At one hour 8 ounces of oral e nsure plus is given to mimic CCK and gallbladder ejection fraction is calculated at 44 %, in the norm al range. Therefore there is no scintigraphic evidence of cystic or common bile duct obstruction to suggest acute cholecystitis or gallbladder dyskinesia. IMPRESSION: No scintigraphic evidence of acute cholecystitis, chronic cholecystitis, nor biliary dysk inesia.
== END ==
LOC: RADNMMAIN 08:53
PROVIDERS: ATTEND Family Medicine
DX: K76.0 Fatty (change of) liver, not elsewhere classified (principal); K21.0 Gastro-esophageal reflux disease with esophagitis; K75.81 Nonalcoholic steatohepatitis (NASH); R10.811 Right upper quadrant abdominal tenderness
CPT/HCPCS: 78226; A9537

== ENCOUNTER → 2020-11-20 | Outpatient (CLI) | payer OTHER ==
--- NOTE | 2020-11-20 13:24 | CT ---
EXAMINATION TYPE: CT brain wo con DATE OF EXAM: 11/20/2020 HISTORY: chronic pain and headache CT DLP: 1027.5 mGycm. Automated Exposure Control for Dose Reduction was Utilized. TECHNIQUE: CT scan of the head is performed without contrast. COMPARISON: None. FINDINGS: There is no acute intracranial hemorrhage or midline shift identified. There is diffuse v entricular and sulcal prominence consistent with diffuse age-related cerebral atrophy. There is low- attenuation in the periventricular white matter consistent with chronic small vessel ischemic change. Mild/moderate mucosal thickening involving the anterior ethmoid sinuses bilaterally. Eccentric mucos al thickening or small polyp in the inferior right sphenoid sinus. Moderate vascular calcification di stal carotid arteries bilaterally. IMPRESSION: No acute intracranial hemorrhage or midline shift. There is mild to moderate diffuse ce rebral atrophy and mild chronic small vessel ischemic change noted. Chronic paranasal sinus disease.
== END | disposition home or self-care (01) ==
LOC: RADCTMAIN 12:23
PROVIDERS: ATTEND Family Medicine
DX: G31.9 Degenerative disease of nervous system, unspecified (principal); I67.82 Cerebral ischemia; G89.29 Other chronic pain
CPT/HCPCS: 70450

== ENCOUNTER → 2021-03-28 | Outpatient (CLI) | payer OTHER ==
--- NOTE | 2021-03-28 14:56 | CT ---
EXAMINATION TYPE: CT abdomen pelvis w con DATE OF EXAM: 03/28/2021 COMPARISON: CT abdomen and pelvis April 23, 2018 HISTORY: Abdominal pain. Patient poor historian. CT DLP: 1419 mGycm, Automated Exposure Control for Dose Reduction was Utilized. CONTRAST: CT scan of the abdomen and pelvis is performed with oral and with IV Contrast, patient injected with 100ml mL of Isovue 300. FINDINGS: LUNG BASES: No significant abnormality is appreciated. LIVER/GB: Mild hepatomegaly remains present. Liver remains heterogeneously hypodense suggesting diffu se fatty infiltration. Gallbladder is dilated with distended margin similar to prior study. No Surrou nding fat stranding or inflammatory change. PANCREAS: No significant abnormality is seen. SPLEEN: New splenomegaly at 15.8 cm long axis axial image 23 ADRENALS: No significant abnormality is seen. KIDNEYS: Central calcifications in left kidney favor vascular etiology. There is however new 13 mm ca lculus in the right renal pelvis coronal image 67. There is [id number] fat stranding surroundin g the renal pelvis. Symmetric cortical medullary uptake and excretion from both kidneys is seen. Mild proximal right-sided hydroureter but no distal hydroureter or obstructing calculus. Poorly distended bladder with moderate concentric wall thickening coronal image 65 for reference. Tiny 4 mm hyperdens e focus posteriorly axial image 79 is unchanged from prior study, not dense enough to reflect stone. Etiology uncertain. Stability over 3 years consistent with benign etiology. Smaller central upper to mid right renal calcifications favor vascular etiology. BOWEL: Oral contrast reaches level of rectum. No suspicious small or large bowel dilatation. PROSTATE/SEMINAL VESICLES: Posterior calcifications and normal sized prostate. Symmetric bulkiness to bilateral seminal vesicles redemonstrated. LYMPH NODES: No greater than 1cm abdominal or pelvic lymph nodes are appreciated. OSSEOUS STRUCTURES: Mild to moderate axial joint space loss both hips. OTHER: Small fat-containing right inguinal hernia. Moderate calcified plaque of the aorta extends int o branch vessels. AAA up to 4.7 cm in diameter axial image 43 redemonstrated increased in size from p rior. No common iliac arterial extension. Stable small fat-containing right inguinal hernia. IMPRESSION: 1. There is 1.3 cm calculus in the right renal pelvis. Advise urology referral. 2. New splenomegaly may warrant further clinical workup. 3. Moderate concentric wall thickening in poorly distended bladder, correlate clinically. 4. Enlarging AAA up to 4.7 cm currently.
== END | disposition home or self-care (01) ==
LOC: RADCTMAIN 12:29
PROVIDERS: ATTEND Family Medicine
DX: N32.89 Other specified disorders of bladder (principal); I71.4 Abdominal aortic aneurysm, without rupture
CPT/HCPCS: 74177; Q9967